=== PATIENT | female | born 1955 ===

== ENCOUNTER 2017-02-06 08:10 | Day surgery (SDC) | payer SELFPAY ==
[2017-02-04 08:55] VITALS: BMI 25.2
[2017-02-06] MEDS ORDERED: Propofol 10 mg/ml Inj (20 ML) ONE ×2 (08:44→09:14)
[2017-02-06] MEDS ORDERED: Lidocaine 2% Inj (20ml) ONE (08:44)
[2017-02-06] MEDS ORDERED: ePHEDrine 50 mg/ml Inj ONE (09:18)
[2017-02-06] MEDS ORDERED: Lactated Ringer's 1,000 ML IV SCH (09:46)
[2017-02-06 11:30] VITALS: BP 117/64; PULSE 50; RESP 16; TEMP 97.5; O2SAT 100
== END 2017-02-06 10:56 | disposition home or self-care (01) ==
LOC: ENDO 08:10
PROVIDERS: ATTEND Internal Medicine Gastroenterology
DX: D12.2 Benign neoplasm of ascending colon (principal); D12.0 Benign neoplasm of cecum; K57.30 Diverticulosis of large intestine without perforation or abscess without bleeding; K64.1 Second degree hemorrhoids; K29.70 Gastritis, unspecified, without bleeding; B96.81 Helicobacter pylori [H. pylori] as the cause of diseases classified elsewhere; K29.80 Duodenitis without bleeding; K21.0 Gastro-esophageal reflux disease with esophagitis
CPT/HCPCS: 43239; 45380; 45385; 88305; 88312; 88342; J2405; J2704; J7040; J7120